=== PATIENT | male | born 1960 | race Caucasian/White ===

== ENCOUNTER 2017-06-15 13:14 | Emergency (ER) | payer OTHER ==
[~2017-06-15] VITALS: Ht 172.7 cm; Wt 121.8 kg
[2017-06-15] MEDS ORDERED: TYLE325T5 PO (13:55)
[2017-06-15] MEDS ORDERED: ASPI81TA85 PO (14:01)
[2017-06-15] MEDS ORDERED: OMEP40CA2 PO (14:01)
[2017-06-15] MEDS ORDERED: MULTCAP11 PO (14:01)
[2017-06-15] MEDS ORDERED: CLIN150C14 PO (14:01)
[2017-06-15] MEDS ORDERED: METH2.5TA PO (14:01)
[2017-06-15] MEDS ORDERED: ALBU17IN2 INH (14:01)
[2017-06-15] MEDS ORDERED: VITA500C24 PO (14:01)
[2017-06-15] MEDS ORDERED: FOLI1TAB4 PO (14:01)
[2017-06-15] MEDS ORDERED: ATEN25TA PO (14:01)
[2017-06-15] MEDS ORDERED: ASCO25TA PO (14:01)
[2017-06-15] MEDS ORDERED: ELIQ5TAB PO (14:01)
[2017-06-15] MEDS ORDERED: HYDR-3713 PO (14:01)
[2017-06-15] MEDS ORDERED: SIMV80TA PO (14:01)
[2017-06-15] MEDS ORDERED: COLA100C5 PO (14:01)
[2017-06-15] MEDS ORDERED: MORPHINE 4 MG/ML 1ML SYRINGE IV ONE (15:45)
[2017-06-15] MEDS ORDERED: CLINDAMYCIN 900 MG in APPROPRIATE DILUENT 1 EA IV ONE (16:00)
[2017-06-15 16:25] LABS: BASO % 0.4 % (0.0-1.0); EOS # 0.1 K/mm3 (0.0-0.50); EOS % 1.1 % (0.0-3.0); LARGE UNSTAINED CELL # 0.3 K/mm3 (0.0-0.4); LARGE UNSTAINED CELL % 2.2 % (0.0-4.0); LYMPH # 2.1 K/mm3 (1.5-4.5); LYMPH % 15.5 % (24.0-44.0); MEAN CORPUSCULAR VOLUME 97.1 fl (80.0-96.0); MONO # 0.8 K/mm3 (0.0-0.8); MONO % 6.7 % (0.0-5.0); NEUTROPHILS # 8.9 K/mm3 (1.8-7.7); NEUTROPHILS % 74.1 % (36.0-66.0); PLATELET COUNT, AUTOMATED 225 k/mm3 (150-450); RED CELL DISTRIBUTION WIDTH 13.9 % (11.5-14.5)
[2017-06-15 16:42] LABS: ANION GAP 9 MEQ/L (8-16); BLOOD UREA NITROGEN 14 MG/DL (7-18); CALCIUM LEVEL 8.2 MG/DL (8.5-10.1); CARBON DIOXIDE LEVEL 25 MEQ/L (21-32); CHLORIDE LEVEL 103 MEQ/L (98-107); CREATININE FOR GFR 0.85 MG/DL (0.70-1.30); GLOMERULAR FILTRATION RATE > 60.0 (>56); GLUCOSE, FASTING 107 MG/DL (70-105); POTASSIUM SERUM 4.6 MEQ/L (3.5-5.1); SODIUM LEVEL 137 MEQ/L (136-145)
[2017-06-15 16:49] LABS: ERYTHROCYTE SEDIMENTATION RATE 25 mm/hr (0-20)
[2017-06-15 16:52] VITALS: BP 162/93
[2017-06-15] MEDS ORDERED: PERCOCET 5MG/325MG TAB PO ONE (17:30)
[2017-06-15] MEDS ORDERED: PERC5TAB12 PO (17:34)
[2017-06-16] MEDS ORDERED: CLIN150C14 PO (16:38)
[2017-06-16] MEDS ORDERED: VITMTA PO (18:02)
[2017-06-16] MEDS ORDERED: OMEP20CA3 PO (18:02)
[2017-06-16] MEDS ORDERED: CLEO300C2 PO (18:02)
[2017-06-16] MEDS ORDERED: OXYC1TAB23 PO (18:02)
[2017-06-16] MEDS ORDERED: ASPI325T PO (18:22)
== END 2017-06-15 17:45 | disposition home or self-care (01) ==
LOC: M ED 13:14
DX: K04.7 Periapical abscess without sinus (principal); R68.84 Jaw pain; I25.2 Old myocardial infarction; Z95.1 Presence of aortocoronary bypass graft; I10 Essential (primary) hypertension; Z86.73 Personal history of transient ischemic attack (TIA), and cerebral infarction without residual deficits; E66.01 Morbid (severe) obesity due to excess calories; Z87.891 Personal history of nicotine dependence; Z79.01 Long term (current) use of anticoagulants; Z79.82 Long term (current) use of aspirin; Z79.899 Other long term (current) drug therapy; Z88.5 Allergy status to narcotic agent; Z88.0 Allergy status to penicillin

== ENCOUNTER 2017-06-16 16:25 | Inpatient (IN) | payer OTHER ==
[~2017-06-16] VITALS: Ht 172.7 cm; Wt 123.1 kg
[~2017-06-16 16:25] MED LIST: ALBU17IN2 INH; ASCO25TA PO; ASPI81TA85 PO; ATEN25TA PO; CLIN150C14 PO; COLA100C5 PO; ELIQ5TAB PO; FOLI1TAB4 PO; HYDR-3713 PO; METH2.5TA PO; MULTCAP11 PO; OMEP40CA2 PO; PERC5TAB12 PO; SIMV80TA PO; TYLE325T5 PO; VITA500C24 PO
[2017-06-16] MEDS ORDERED: CLIN150C14 PO (16:38)
[2017-06-16] MEDS ORDERED: MORPHINE 10 MG/ML 1ML VIAL IV ONE ×2 (17:15→21:15)
[2017-06-16] MEDS ORDERED: CLINDAMYCIN 900 MG in APPROPRIATE DILUENT 1 EA IV ONE (17:15)
[2017-06-16] MEDS ORDERED: CLEO300C2 PO (18:02)
[2017-06-16] MEDS ORDERED: OMEP20CA3 PO (18:02)
[2017-06-16] MEDS ORDERED: VITMTA PO (18:02)
[2017-06-16] MEDS ORDERED: OXYC1TAB23 PO (18:02)
[2017-06-16 18:06] LABS: BASO % 0.3 % (0.0-1.0); EOS # 0.1 K/mm3 (0.0-0.50); EOS % 1.2 % (0.0-3.0); LARGE UNSTAINED CELL # 0.3 K/mm3 (0.0-0.4); LARGE UNSTAINED CELL % 2.6 % (0.0-4.0); LYMPH # 2.2 K/mm3 (1.5-4.5); LYMPH % 17.1 % (24.0-44.0); MEAN CORPUSCULAR HEMOGLOBIN 33.3 pg (27.0-33.0); MEAN CORPUSCULAR HGB CONC 34.7 g/dl (32.0-36.5); MEAN CORPUSCULAR VOLUME 95.9 fl (80.0-96.0); MONO # 0.8 K/mm3 (0.0-0.8); MONO % 7.2 % (0.0-5.0); NEUTROPHILS # 8.1 K/mm3 (1.8-7.7); NEUTROPHILS % 71.6 % (36.0-66.0); PLATELET COUNT, AUTOMATED 211 k/mm3 (150-450); RED CELL DISTRIBUTION WIDTH 13.9 % (11.5-14.5); WHITE BLOOD COUNT 11.3 K/mm3 (4.0-10.0)
[2017-06-16] MEDS ORDERED: ASPI325T PO (18:22)
[2017-06-16 19:07] LABS: ANION GAP 7 MEQ/L (8-16); BLOOD UREA NITROGEN 16 MG/DL (7-18); CALCIUM LEVEL 9.3 MG/DL (8.5-10.1); CARBON DIOXIDE LEVEL 28 MEQ/L (21-32); CHLORIDE LEVEL 101 MEQ/L (98-107); CREATININE FOR GFR 0.97 MG/DL (0.70-1.30); GLOMERULAR FILTRATION RATE > 60.0 (>56); GLUCOSE, FASTING 114 MG/DL (70-105); POTASSIUM SERUM 4.3 MEQ/L (3.5-5.1); SODIUM LEVEL 136 MEQ/L (136-145)
[2017-06-16] MEDS: NS 1,000 ML IV SCH (21:00)
[2017-06-16] MEDS ORDERED: ACETAMINOPHEN 325 MG TAB PO PRN (21:00)
[2017-06-16] MEDS ORDERED: ALBUTEROL 90 MCG/ACT 8GM HFA INHALER INH PRN (21:00)
[2017-06-16] MEDS ORDERED: ONDANSETRON 4MG/2ML VIAL (J2405) IV PRN (21:15)
[2017-06-16 21:37] LABS: INR 1.04
[2017-06-16] MEDS: LACTOBACILLUS ACIDOPHILUS CAP (BACID) PO SCH (23:04)
[2017-06-16] MEDS: SIMVASTATIN 40 MG TAB PO SCH (23:04)
[2017-06-17] VITALS (9 sets, daily range): BP systolic 120–171; BP diastolic 69–102
[2017-06-17] MEDS: HEPARIN DRIP 25,000 UNITS in APPROPRIATE DILUENT 1 EA IV SCH (01:34)
[2017-06-17] MEDS: SENOKOT S TAB PO SCH ×2 (01:35→08:27)
[2017-06-17] MEDS: CLINDAMYCIN 900 MG in APPROPRIATE DILUENT 1 EA IV SCH ×3 (02:17→16:32)
--- NOTE | 2017-06-17 07:33 | HPE ---
DATE OF ADMISSION: 06/16/2017 PRIMARY CARE PROVIDER: Dr. Sabillon GRAINING OPERATOR: Dr. Espinoza CHIEF COMPLAINT: Left jaw pain swollen. HISTORY OF PRESENT ILLNESS: This is a 56-year-old male patient with underlying medical history of coronary arterial disease with coronary artery bypass graft (CABG) in 2013, transient ischemic attack (TIA) 2007 with right-sided upper and lower extremity weakness that has resolved since then and also pericardial effusion after coronary artery bypass graft (CABG) requiring pericardial window and questionable history of atrial fibrillation, which was later confirmed with Dr. Espinoza and also rheumatoid arthritis, hypertension, dyslipidemia, psoriasis and also obstructive sleep apnea on CPAP poorly compliant. The patient initially presented to the emergency room yesterday, June 15, and found to have a dental abscess. Subsequently was sent in by Dr. Noland today for OR drainage of abscess and tooth removal. The patient has not been on Eliquis. Eliquis has been on hold for the past 24 hours, but after discussing with Dr. Noland, given the patient's history of paroxysmal atrial fibrillation with history of cerebrovascular accident (CVA), the patient likely would benefit from bridging. Subsequently, the patient was placed on heparin drip, admitted for bridging for heparin drip and likely OR tomorrow. The patient at baseline is relatively healthy, able to ambulate a couple of blocks without any problems. 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 Denies any chest pain, pressure, discomfort, shortness of breath. Reported chills, subjective fever, none documented. Denies any nausea, vomiting diarrhea. ALLERGIES: CODEINE, HYDROCODONE, PENICILLIN. PAST MEDICAL HISTORY: 1. Coronary arterial disease. 2. Rheumatoid arthritis. 3. Psoriasis. 4. Dyslipidemia. 5. Hypertension. 6. Obstructive sleep apnea. 7. Cerebrovascular accident (CVA). 8. Paroxysmal atrial fibrillation. PAST SURGICAL HISTORY: Coronary artery bypass graft (CABG), pericardial , foot surgery and hand nodule surgery. SOCIAL HISTORY: The patient quit smoking in 2007. Smoked one pack per day for 30 years and drinking alcohol once a month. FAMILY HISTORY: Denies family history of premature coronary arterial disease or cerebrovascular disease. REVIEW OF SYSTEMS: Reported left jaw and facial pain. Denies any shortness of breath. All other review of systems is negative. HOME MEDICATION: - acetaminophen 500 mg by mouth every 6 hours as needed - Proventil inhalation every 6 hours as needed - Eliquis 5 mg by mouth twice a day - vitamin C 500 mg by mouth daily - aspirin 81 ana by mouth daily - aspirin 325 mg by mouth daily as needed - atenolol 25 mg by mouth daily - clindamycin 300 mg by mouth three times a day - Colace 500 mg by mouth daily - folic acid 1 mg by mouth daily - methotrexate 7.5 mg by mouth daily - multivitamins one tablet by mouth daily - omeprazole 20 mg by mouth daily - oxycodone/acetaminophen 5/325 mg by mouth every 6 hours as needed - Zocor 80 mg by mouth every p.m. PHYSICAL EXAMINATION: VITAL SIGNS: Temperature 99.2, pulse 108, respirations 18, blood pressure 117/78, pulse oximetry 95% on room air. GENERAL: The patient alert and oriented times three in no acute distress. HEENT: Right facial swelling and erythema. Tender to palpation. No tracheal deviation. PULMONARY: Bilateral clear to auscultation. CARDIAC: Regular rate and rhythm. Normal S1 and S2. ABDOMEN: Soft, nontender, obese, positive bowel sounds. EXTREMITIES: No edema in bilateral lower extremities. Electrocardiogram (EKG) shows sinus rhythm with no ST segment changes. LABORATORY: White blood count (WBC) 11.3, hemoglobin and hematocrit 16.4/47.2. Platelets 211. Chemistry: Sodium 136, potassium 4.2, chloride 101, bicarbonate 28, BUN 16, creatine 0.97, C-reactive protein 7.05. ASSESSMENT AND PLAN: This is a 56-year-old male patient with underlying medical history of coronary arterial disease, cerebrovascular accident (CVA) with coronary artery bypass graft (CABG) in 2013, cerebrovascular accident (CVA) in 2007 with pericardial effusion, psoriasis, rheumatoid arthritis, dyslipidemia, hypertension, obstructive sleep apnea and paroxysmal atrial fibrillation admitted for left-sided dental abscess. PROBLEMS: 1. Left-sided dental abscess. The patient will be urgent surgery tomorrow. The case was discussed with Dr. Noland, who is consulted. Will bridge the patient on heparin drip, with heparin drip to be held 3 to 4 hours prior to surgery and resume heparin drip after surgery and resume Eliquis the next day after surgery. Culture has been sent. The patient on clindamycin as per Dr. Noland. The case discussed with Dr. Espinoza. Will monitor the patient closely. The patient's baseline METs greater than 4. Is intermediate risk for low intermediate risk procedure. The patient is currently optimized. 2. Coronary artery disease. Continue aspirin, beta blockers, statin. Electrocardiogram (EKG) is appreciated. 3. History of cerebrovascular accident (CVA). Continue aspirin and beta blockers. Given underlying history of paroxysmal atrial fibrillation, will bridge the patient with heparin drip. Restart Eliquis the day after OR. 4. Constipation. Continue bowel regimen. 5. Atrial fibrillation. Continue beta blockers, heparin drip, bridge with heparin drip. Resume Eliquis 24 hours after OR. 6. Hypertension. Continue currently medication, monitor blood pressure. 7. Rheumatoid arthritis. Continue current medication. 8. Psoriasis. Continue current medication outpatient followup. 9. Dyslipidemia. Continue statin. 10. Obesity complicating care. 11. Obstructive sleep apnea. Obstructive sleep apnea protocol. Encourage CPAP compliance. CPAP as tolerated. 12. Deep vein thrombosis (DVT) prophylaxis. The patient is on heparin drip. DISPOSITION: Pending OR tomorrow. Will monitor the patient closely.
[2017-06-17 07:47] LABS: MEAN CORPUSCULAR HEMOGLOBIN 33.5 pg (27.0-33.0); MEAN CORPUSCULAR HGB CONC 34.8 g/dl (32.0-36.5); MEAN CORPUSCULAR VOLUME 96.2 fl (80.0-96.0); RED CELL DISTRIBUTION WIDTH 13.9 % (11.5-14.5); WHITE BLOOD COUNT 10.2 K/mm3 (4.0-10.0)
[2017-06-17 08:16] LABS: ANION GAP 8 MEQ/L (8-16); BLOOD UREA NITROGEN 18 MG/DL (7-18); CALCIUM LEVEL 9.3 MG/DL (8.5-10.1); CARBON DIOXIDE LEVEL 26 MEQ/L (21-32); CHLORIDE LEVEL 102 MEQ/L (98-107); CREATININE FOR GFR 0.89 MG/DL (0.70-1.30); GLOMERULAR FILTRATION RATE > 60.0 (>56); GLUCOSE, FASTING 119 MG/DL (70-105); MAGNESIUM LEVEL 2.1 MG/DL (1.8-2.4); POTASSIUM SERUM 4.2 MEQ/L (3.5-5.1); SODIUM LEVEL 136 MEQ/L (136-145)
[2017-06-17] MEDS: ASPIRIN 81 MG ENTERIC TAB PO SCH (08:26)
[2017-06-17] MEDS: OMEPRAZOLE 20 MG CAP PO SCH (08:26)
[2017-06-17] MEDS: FOLIC ACID 1 MG TAB PO SCH (08:26)
[2017-06-17] MEDS: LACTOBACILLUS ACIDOPHILUS CAP (BACID) PO SCH ×2 (08:26→16:00)
[2017-06-17] MEDS: ATENOLOL 25 MG TAB PO SCH (08:28)
[2017-06-17] MEDS: MULTIVITAMINS/MINERALS THERAP 1 TAB PO SCH (08:28)
[2017-06-17] MEDS: ASCORBIC ACID 500 MG TAB PO SCH (08:28)
[2017-06-17] MEDS: HEPARIN SOD (PORCINE) 5000 UNITS/ML VIAL IV PRN (08:29)
[2017-06-17] MEDS ORDERED: MIRALAX *UNIT DOSE* 17GM PACKET PO SCH (09:00)
[2017-06-17] MEDS: NS 1,000 ML IV SCH (12:16)
[2017-06-17] MEDS: MORPHINE 2 MG/ML 1ML SYRINGE IV PRN ×2 (12:17→17:25)
--- NOTE | 2017-06-17 16:14 | IPNPDOC ---
Date Seen The patient was seen on 06/17/17. Progress Note Hospitalist Progress Note Subjective: Patient states that he thinks the swelling has begun to go down Objective: Physical Exam: Vitals: Vital Sign - Last 24 Hours 06/16/17 06/16/17 06/16/17 06/16/17 16:25 17:34 17:52 18:58 Temp 98.6 99.2 Pulse 104 108 Resp 16 18 18 B/P (MAP) 138/88 (105) 117/78 (91) Pulse Ox 96 95 O2 Delivery Room Air Room Air 06/16/17 06/16/17 06/16/17 06/16/17 19:11 21:23 22:01 22:04 Pulse 93 Resp 18 18 18 18 B/P (MAP) 131/82 (98) Pulse Ox 99 99 99 06/16/17 06/16/17 06/16/17 06/16/17 23:25 23:40 23:49 23:55 Pulse 94 102 110 B/P (MAP) 115/59 (77) Pulse Ox 90 91 91 06/17/17 06/17/17 06/17/17 06/17/17 00:10 00:19 00:25 00:49 Pulse 108 112 B/P (MAP) 94/53 (67) 120/70 (87) Pulse Ox 90 89 06/17/17 06/17/17 06/17/17 06/17/17 00:53 02:46 04:47 08:00 Temp 98.4 98.0 98.2 Pulse 104 89 84 Resp 18 20 16 B/P (MAP) 130/72 (91) 136/83 (100) Pulse Ox 94 95 92 O2 Delivery Room Air Nasal Cannula Room Air Room Air O2 Flow Rate 2.0 06/17/17 06/17/17 06/17/17 06/17/17 08:28 08:40 12:00 12:17 Temp 98.5 Pulse 84 80 Resp 16 20 B/P (MAP) 136/83 150/94 (112) Pulse Ox 95 O2 Delivery Nasal Cannula Room Air Room Air O2 Flow Rate 2.0 06/17/17 06/17/17 06/17/17 12:27 12:35 16:00 Temp 98.8 Pulse 77 Resp 20 16 B/P (MAP) 138/80 (99) Pulse Ox 94 O2 Delivery Room Air Room Air Room Air General: Awake, alert, no acute distress HEENT: Left cheek and jaw are swollen, moist mucous membranes CV: Regular rate and rhythm Lungs: Clear to Auscultation bilaterally Abd: Soft, Nontender, nondistended Extremities: No edema Neuro: Alert and oriented 3, normal speech Psych: Normal mood and affect Labs and Imaging: Laboratory Tests 06/16/17 17:45 Red Blood Count 4.92, Mean Corpuscular Volume 95.9, Mean Corpuscular Hemoglobin 33.3 H, Mean Corpuscular Hemoglobin Concent 34.7, Red Cell Distribution Width 13.9, Neutrophils (%) (Auto) 71.6 H, Lymphocytes (%) (Auto) 17.1 L, Monocytes (% ) (Auto) 7.2 H, Eosinophils (%) (Auto) 1.2, Basophils (%) (Auto) 0.3, Neutrophils # (Auto) 8.1 H, Lymphocytes # (Auto) 2.2, Monocytes # (Auto) 0.8, Eosinophils # (Auto) 0.1, Basophils # (Auto) 0.0 06/16/17 18:42 Calcium Level 9.3 06/17/17 07:28 Red Blood Count 4.47, Mean Corpuscular Volume 96.2 H, Mean Corpuscular Hemoglobin 33.5 H, Mean Corpuscular Hemoglobin Concent 34.8, Red Cell Distribution Width 13.9, Calcium Level 9.3 Assessment and Plan: 56-year-old male with CAD status post CABG, TIA, pericardial effusion status post pericardial window, A. fib, rheumatoid arthritis, hypertension, hyperlipidemia, psoriasis, RAND who was sent to the emergency department to be bridged on a heparin drip from his home eliquis so that he could have oral surgical intervention of a tooth abscess. 1. Tooth abscess: Management as per Dr. Noland. Blood culture pending. Antibiotics as per oral surgery. Afebrile. White count was 11.3 on admission, now 10.2. Continue IV fluids 2. A. fib, with history of TIA: The patient usually takes eliquis at home. Given his history of A. fib and TIA, it was felt that it is safest for him to be bridged on a heparin drip for this surgery. After surgery today, the heparin drip will be resumed, and the patient should be able to transition to [facility] tomorrow, 24 hours after surgery. Continue beta megha. 3. CAD status post CABG, hyperlipidemia: No current chest pain. Continue home aspirin, statin, beta megha. 4. Rheumatoid arthritis: Continue home methotrexate. 5. Hypertension: Continue beta megha. DVT prophylaxis: Heparin drip Dispo: pending tooth extraction VS, I&O, 24H, Fishbone Vital Signs/I&O Vital Signs Date Time Temp Pulse Resp B/P (MAP) Pulse Ox O2 Delivery O2 Flow Rate FiO2 06/17/17 16:00 98.8 77 16 138/80 (99) 94 Room Air 06/17/17 08:40 2.0 I&O- Last 24 Hours up to 6 AM 06/17/17 06:00 Intake Total 1054 ml Output Total 325 ml Balance 729 ml Laboratory Data 24H LABS Laboratory Tests 2 06/16/17 17:45: White Blood Count 11.3H, Red Blood Count 4.92, Hemoglobin 16.4, Hematocrit 47.2 , Mean Corpuscular Volume 95.9, Mean Corpuscular Hemoglobin 33.3H, Mean Corpuscular Hemoglobin Concent 34.7, Red Cell Distribution Width 13.9, Platelet Count 211, Neutrophils (%) (Auto) 71.6H, Lymphocytes (%) (Auto) 17.1L, Monocytes (%) (Auto) 7.2H, Eosinophils (%) (Auto) 1.2, Basophils (%) (Auto) 0.3 , Neutrophils # (Auto) 8.1H, Lymphocytes # (Auto) 2.2, Monocytes # (Auto) 0.8, Eosinophils # (Auto) 0.1, Basophils # (Auto) 0.0, Large Unclassified Cells % 2.6 , Large Unclassified Cells # 0.3 06/16/17 18:42: Anion Gap 7L, Glomerular Filtration Rate > 60.0, Blood Urea Nitrogen 16, Creatinine 0.97, Sodium Level 136, Potassium Level 4.3, Chloride Level 101, Carbon Dioxide Level 28, Calcium Level 9.3, C-Reactive Protein, Quantitative 7.05H 06/16/17 21:21: Prothrombin Time 13.7, Prothromb Time International Ratio 1.04, Activated Partial Thromboplast Time 28.8 06/17/17 07:28: Anion Gap 8, Glomerular Filtration Rate > 60.0, Blood Urea Nitrogen 18, Creatinine 0.89, Sodium Level 136, Potassium Level 4.2, Chloride Level 102, Carbon Dioxide Level 26, Calcium Level 9.3, C-Reactive Protein, Quantitative 8.22H, Activated Partial Thromboplast Time 39.8H, Magnesium Level 2.1 06/17/17 14:37: Activated Partial Thromboplast Time 66.8H CBC/BMP Laboratory Tests 06/16/17 17:45 Red Blood Count 4.92, Mean Corpuscular Volume 95.9, Mean Corpuscular Hemoglobin 33.3 H, Mean Corpuscular Hemoglobin Concent 34.7, Red Cell Distribution Width 13.9, Neutrophils (%) (Auto) 71.6 H, Lymphocytes (%) (Auto) 17.1 L, Monocytes (% ) (Auto) 7.2 H, Eosinophils (%) (Auto) 1.2, Basophils (%) (Auto) 0.3, Neutrophils # (Auto) 8.1 H, Lymphocytes # (Auto) 2.2, Monocytes # (Auto) 0.8, Eosinophils # (Auto) 0.1, Basophils # (Auto) 0.0 06/16/17 18:42 Calcium Level 9.3 06/17/17 07:28 Red Blood Count 4.47, Mean Corpuscular Volume 96.2 H, Mean Corpuscular Hemoglobin 33.5 H, Mean Corpuscular Hemoglobin Concent 34.8, Red Cell Distribution Width 13.9, Calcium Level 9.3 Microbiology Microbiology 06/16/17 Blood Culture, Received Pending 06/16/17 Blood Culture, Received Pending PEEWEE BORREGO Jun 17, 2017 16:14
[2017-06-17] MEDS ORDERED: fentaNYL 100 MCG/2 ML INJECTION (J3010) As Ordered ONE ×2 (19:14→19:46)
[2017-06-17] MEDS ORDERED: MIDAZOLAM INJ 2 MG/2 ML VIAL (J2250) As Ordered ONE (19:14)
[2017-06-17] MEDS ORDERED: LIDOCAINE 2% W/ EPINEPHRINE 1.7 ML DENTAL INJ As Ordered ONE (19:24)
[2017-06-17] MEDS ORDERED: MEPIVACAINE HCL 3 % 1.7 ML DENTAL CARTRIDGE (CARBOCAINE) (J0670) As Ordered ONE (19:25)
[2017-06-17] MEDS ORDERED: LIDOCAINE 2% INJ 100 MG/5 ML SDV (FOR ANES.) As Ordered ONE (19:48)
[2017-06-17] MEDS ORDERED: PROPOFOL 200 MG/20 ML VIAL As Ordered ONE (19:48)
[2017-06-17] MEDS ORDERED: ePHEDrine SULFATE 25 MG/5 ML(5MG/ML) SYRINGE As Ordered ONE (19:48)
[2017-06-17] MEDS ORDERED: PHENYLephrine HCL 500 MCG/5 ML (100MCG/ML) SYRINGE (J2370) As Ordered ONE (19:48)
[2017-06-17] MEDS ORDERED: SUCCINYLCHOLINE 100 MG/5 ML SYRINGE (J0330) As Ordered ONE (19:48)
[2017-06-17] MEDS ORDERED: ONDANSETRON 4MG/2ML VIAL (J2405) IV PRN (21:00)
[2017-06-17] MEDS ORDERED: METHOTREXATE 2.5 MG TAB (J8610 PER 2.5MG) PO SCH (21:00)
[2017-06-17] MEDS ORDERED: PERCOCET 5MG/325MG TAB PO PRN (21:00)
[2017-06-17] MEDS ORDERED: LR 1,000 ML IV SCH (21:00)
[2017-06-17] MEDS ORDERED: MEPERIDINE INJ 25 MG/ML VIAL (J2175) IV PRN (21:00)
[2017-06-17] MEDS ORDERED: METOCLOPRAMIDE INJ 10MG/2ML VIAL (J2765) IV PRN (21:00)
[2017-06-17] MEDS ORDERED: fentaNYL 100 MCG/2 ML INJECTION (J3010) IV PRN (21:00)
[2017-06-17] MEDS ORDERED: MAGNESIUM CITRATE 300 ML BTL PO ONE (22:15)
[2017-06-18] VITALS (7 sets, daily range): BP systolic 126–149; BP diastolic 66–89
[2017-06-18] MEDS: SIMVASTATIN 40 MG TAB PO SCH ×2 (00:32→20:18)
[2017-06-18] MEDS: LACTOBACILLUS ACIDOPHILUS CAP (BACID) PO SCH ×4 (00:32→20:18)
[2017-06-18] MEDS: SENOKOT S TAB PO SCH ×3 (00:32→20:18)
[2017-06-18] MEDS: PERCOCET 5MG/325MG TAB PO PRN ×2 (00:32→20:19)
[2017-06-18] MEDS: CLINDAMYCIN 900 MG in APPROPRIATE DILUENT 1 EA IV SCH ×3 (00:33→16:10)
[2017-06-18] MEDS: HEPARIN DRIP 25,000 UNITS in APPROPRIATE DILUENT 1 EA IV SCH (02:37)
--- NOTE | 2017-06-18 07:55 | RO ---
DATE OF PROCEDURE: 06/17/2017 DATE OF ADMISSION: 06/16/2017 SERVICE: Oral maxillofacial surgery. PREOPERATIVE DIAGNOSES: 1. Hypertension, coronary artery disease morbid obesity, atrial fibrillation and a history of the venous thrombosis. 2. Left buccal space abscess/infection with necrotic and abscessed teeth #18 and #19. POSTOPERATIVE DIAGNOSES: Status post hypertension, coronary artery disease morbid obesity, atrial fibrillation and a history of the venous thrombosis, left buccal space abscess/infection with necrotic and abscessed teeth #18 and #19. PROCEDURE PERFORMED: Incision and drainage of left buccal space abscess as well as surgical extraction of teeth #18 and 19. SURGEON: Sonu Noland DMD, MD SENIOR DESIGNER/ART DIRECTOR: ANESTHESIA USED: General endotracheal anesthesia via oral YURIDIA. SPECIMEN: Aerobes and anaerobes cultures and sensitivity. ESTIMATED BLOOD LOSS: About 30 mL. INDICATIONS FOR SURGERY: Mr. Calles is a pleasant, 56-year-old male who this last Thursday was complaining of tooth pain as well as facial swelling. He did see his dentist that day who prescribed him some antibiotics in the form of clindamycin. The patient did relatively okay in the next 24 hours. However, on Thursday, he developed severe swelling in his cheek and with limited mouth opening. He presented back to the [place] emergency room on Thursday and was then referred to [facility] emergency room (ER) where I saw him there on Thursday. Clinical exam reveals moderate left facial swelling in the cheek area with a soft neck with no induration or swelling noted there. His mouth opening was about 30 mm. Intraorally, he does have an elevated left mandibular vestibule with purulence stemming from the sulcus of teeth #18 and #19. These two teeth are grossly decayed with tenderness to palpation. The floor of the mouth was soft, uvula is intact and there was no airway involvement. Imaging on a Panorex reveals caries on tooth #18 as well as a periapical radiolucency on root canal tooth #19. His white count on admission in the ER was 12.6 and his vital signs were stable. At this point, discussion was made with the patient regarding the treatment options, which included a trip to the operating room for an incision and drainage and extraction of teeth #18 and #9. The plan was to have this done on 06/16/2017. However, his admitting hospitalist team required to have a cardiac as well as a complete medical history review with preoperative clearance and therefore, the case was delayed until 06/17/2017. He was placed on a heparin drip for deep venous thrombosis (DVT) prophylaxis due to his DVT history and he did well with that. A complete history and physical was performed and is in the patient's chart. A informed consent was obtained and was explained to the patient and was signed. DESCRIPTION OF PROCEDURE: On 06/17/2017, the patient in preop holding area. Any last minute questions were addressed. At that point, the informed consent was once again reviewed and updated. The history and physical was updated. At that point, the patient was taken back the operating room. He was laid supine on the operating room table. Ulnar nerve protectors were placed. Noninvasive cardiac monitors were applied. At that point, the patient was then induced for general anesthesia and intubated with an oral YURIDIA. He was then prepped and draped in the usual sterile fashion. A time-out procedure was performed to identify the patient, the procedure or any other precautions. At this point, the patient did not require any preoperative antibiotics since he was on a scheduled maintenance dose of 900 every 8 hours. He did receive 8 mg of IV Decadron. At this point, a moist throat pack was inserted and the patient's oropharynx followed by the administration of two Carpules of 2% lidocaine as well as four Carpules of 3% Carbocaine with no epi into the patient's vestibule as local infiltration as well as the mandibular blocks, followed by the use of a #15 blade to make an incision along the sulcus of teeth #18 and #19 extending mesially to teeth #20 and #21 and extended distally as a hockey stick buccal extension along the ramus subperiosteal dissection all the way to the inferior border of the mandible and underneath the masseter muscle reveals an abundance of necrotic and purulent material as well as what looks like a hematoma, which was completely evacuated and suctioned. An abundant amount of copious irrigation was performed and suctioned. At this point, buccal bone was then removed as a trough from teeth #18 and #19. The teeth were then sectioned and removed in total. The sockets were well curetted and irrigated. The lingual cortices were intact. The inferior alveolar nerve was not noted. At this point, a rongeur and a bone file were then used to smooth the facial cortices down to a smooth finish. Copious irrigation into the sockets were performed and the flaps were then closed with #3-0 chromic sutures. To mention, as soon as I made the incision at the start of the case, cultures were taken from the subperiosteal area and the submasseteric area for aerobes, anaerobes cultures and sensitivity. At this point, once sutures were completed, the oral cavity was suctioned and irrigated again and the throat pack was removed. Gauze hemostasis was easily achieved and at that point, once the throat pack was removed, he was awakened from general anesthesia and was extubated and taken back to the postanesthesia care unit (PACU). COMPLICATIONS: None. ESTIMATED BLOOD LOSS: About 20 mL. DRAINS: There were no drains placed.
--- NOTE | 2017-06-18 09:03 | ECGEPIP ---
Stationary ECG Study [facility] - ED Test Date: 2017-06-16 Pat Name: BOBBI BRADLEY Department: Room: - Gender: M [employer] Mechanic: DEMI : 1960 Requested By: RENNY Quezada PA-C Order Number: [id number] Reading MD: Olivia Guzmán Measurements Intervals [place] Rate: 96 P: 72 ID: [id number] QRS: 44 QRSD: 86 T: 67 QT: 343 QTc: 434 Interpretive Statements SINUS RHYTHM WITH FIRST DEGREE AV BLOCK NSTTW ABNORMALITY NO PRIOR FOR COMPARISON Electronically Signed On 06-18-2017 9:02:38 EDT by Olivia Guzmán
[2017-06-18 09:25] LABS: MEAN CORPUSCULAR HEMOGLOBIN 33.7 pg (27.0-33.0); MEAN CORPUSCULAR HGB CONC 34.6 g/dl (32.0-36.5); MEAN CORPUSCULAR VOLUME 97.4 fl (80.0-96.0); RED CELL DISTRIBUTION WIDTH 13.2 % (11.5-14.5); WHITE BLOOD COUNT 8.8 K/mm3 (4.0-10.0)
[2017-06-18] MEDS: FOLIC ACID 1 MG TAB PO SCH (09:48)
[2017-06-18] MEDS: ASPIRIN 81 MG ENTERIC TAB PO SCH (09:48)
[2017-06-18] MEDS: OMEPRAZOLE 20 MG CAP PO SCH (09:49)
[2017-06-18] MEDS: ATENOLOL 25 MG TAB PO SCH (09:50)
[2017-06-18] MEDS: MULTIVITAMINS/MINERALS THERAP 1 TAB PO SCH (09:51)
[2017-06-18] MEDS: ASCORBIC ACID 500 MG TAB PO SCH (09:51)
[2017-06-18 10:29] LABS: ANION GAP 9 MEQ/L (8-16); BLOOD UREA NITROGEN 22 MG/DL (7-18); CARBON DIOXIDE LEVEL 27 MEQ/L (21-32); CHLORIDE LEVEL 102 MEQ/L (98-107); CREATININE FOR GFR 1.05 MG/DL (0.70-1.30); GLOMERULAR FILTRATION RATE > 60.0 (>56); GLUCOSE, FASTING 192 MG/DL (70-105); MAGNESIUM LEVEL 2.6 MG/DL (1.8-2.4); POTASSIUM SERUM 4.8 MEQ/L (3.5-5.1); SODIUM LEVEL 138 MEQ/L (136-145)
[2017-06-18] MEDS: HEPARIN SOD (PORCINE) 5000 UNITS/ML VIAL IV PRN (10:31)
--- NOTE | 2017-06-18 19:55 | IPNPDOC ---
Date Seen The patient was seen on 06/18/17. Progress Note Hospitalist Progress Note Subjective: Patient states he is feeling much better Objective: Physical Exam: Vitals: Vital Sign - Last 24 Hours 06/17/17 06/17/17 06/17/17 06/17/17 20:35 20:37 20:38 20:40 Temp 97.5 Pulse 94 96 Resp 14 B/P (MAP) 186/110 (135) 214/106 (142) 164/86 (112) Pulse Ox 95 90 O2 Delivery Room Air 06/17/17 06/17/17 06/17/17 06/17/17 20:45 20:50 20:51 20:55 Pulse 92 90 87 Resp 20 B/P (MAP) 154/79 (104) 152/94 (113) 143/76 (98) Pulse Ox 90 96 92 O2 Delivery Nasal Cannula O2 Flow Rate 2 06/17/17 06/17/17 06/17/17 06/17/17 21:00 21:01 21:05 21:15 Temp 97.3 97.0 Pulse 88 88 89 85 Resp 20 20 B/P (MAP) 136/80 (98) 134/81 (98) 153/88 (109) Pulse Ox 92 94 94 96 O2 Delivery Nasal Cannula Nasal Cannula O2 Flow Rate 2 2.0 06/17/17 06/17/17 06/17/17 06/17/17 21:29 21:45 22:45 23:45 Temp 97.5 97.1 96.2 Pulse 76 69 82 Resp 20 20 20 B/P (MAP) 132/69 (90) 145/84 (104) 138/102 (114) Pulse Ox 93 93 93 O2 Delivery Nasal Cannula Nasal Cannula Room Air Room Air O2 Flow Rate 2.0 2.0 06/18/17 06/18/17 06/18/17 06/18/17 00:32 00:41 01:02 01:45 Temp 96.2 96.6 96.6 96.3 Pulse 82 75 75 72 Resp 20 20 20 20 B/P (MAP) 138/102 140/89 (106) 140/89 131/84 (100) Pulse Ox 93 92 92 93 O2 Delivery Room Air Room Air Room Air Room Air O2 Flow Rate 2.0 2.0 06/18/17 06/18/17 06/18/17 06/18/17 04:00 08:00 08:10 09:50 Temp 96.6 97.4 Pulse 64 79 79 Resp 20 18 B/P (MAP) 126/66 (86) 142/81 (101) 142/81 Pulse Ox 94 98 O2 Delivery Room Air Room Air Room Air 06/18/17 06/18/17 06/18/17 12:00 16:37 17:00 Temp 97.0 97.1 Pulse 80 88 Resp 18 19 B/P (MAP) 138/78 (98) 128/66 (86) Pulse Ox 96 95 O2 Delivery Room Air Room Air Room Air General: Awake, alert, no acute distress HEENT: Left cheek and jaw swelling are much improved, moist mucous membranes CV: Regular rate and rhythm Lungs: Clear to Auscultation bilaterally Abd: Soft, Nontender, nondistended Extremities: No edema Neuro: Alert and oriented 3, normal speech Psych: Normal mood and affect Labs and Imaging: Laboratory Tests 06/18/17 08:54 Red Blood Count 4.25 L, Mean Corpuscular Volume 97.4 H, Mean Corpuscular Hemoglobin 33.7 H, Mean Corpuscular Hemoglobin Concent 34.6, Red Cell Distribution Width 13.2, Calcium Level 9.0 Assessment and Plan: 56-year-old male with CAD status post CABG, TIA, pericardial effusion status post pericardial window, A. fib, rheumatoid arthritis, hypertension, hyperlipidemia, psoriasis, RAND who was sent to the emergency department to be bridged on a heparin drip from his home eliquis so that he could have oral surgical intervention of a tooth/buccal abscess. 1. Tooth/buccal abscess: Management as per Dr. Noland. Blood culture and abscess culture pending. Antibiotics as per oral surgery. Afebrile. White count was 11.3 on admission, now WNL. 2. A. fib, with history of TIA: The patient usually takes eliquis at home. Given his history of A. fib and TIA, it was felt that it is safest for him to be bridged on a heparin drip for this surgery. Will transition back to eliquis tonight, 24 hours after surgery. Continue beta megha. 3. CAD status post CABG, hyperlipidemia: No current chest pain. Continue home aspirin, statin, beta megha. 4. Rheumatoid arthritis: Continue home methotrexate. 5. Hypertension: Continue beta megha. DVT prophylaxis: Heparin drip, transitioning back to eliquis tonight Dispo: potentially tomorrow, pending OMFS's recs; OK to move to med/surg as he has not had any RVR VS, I&O, 24H, Fishbone Vital Signs/I&O Vital Signs Date Time Temp Pulse Resp B/P (MAP) Pulse Ox O2 Delivery O2 Flow Rate FiO2 06/18/17 17:00 Room Air 06/18/17 16:37 97.1 88 19 128/66 (86) 95 06/18/17 01:02 2.0 I&O- Last 24 Hours up to 6 AM 06/18/17 06:00 Intake Total 2177.5 ml Output Total 1975 ml Balance 202.5 ml Laboratory Data 24H LABS Laboratory Tests 2 06/18/17 01:05: Activated Partial Thromboplast Time 27.3 06/18/17 08:54: Activated Partial Thromboplast Time 60.7H, Anion Gap 9, Glomerular Filtration Rate > 60.0, Blood Urea Nitrogen 22H, Creatinine 1.05, Sodium Level 138, Potassium Level 4.8, Chloride Level 102, Carbon Dioxide Level 27, Calcium Level 9.0, Magnesium Level 2.6H, C-Reactive Protein, Quantitative 7.79H CBC/BMP Laboratory Tests 06/18/17 08:54 Red Blood Count 4.25 L, Mean Corpuscular Volume 97.4 H, Mean Corpuscular Hemoglobin 33.7 H, Mean Corpuscular Hemoglobin Concent 34.6, Red Cell Distribution Width 13.2, Calcium Level 9.0 Microbiology Microbiology 06/16/17 Blood Culture - Preliminary, Resulted No growth after 24 hours . All specim... 06/16/17 Blood Culture - Preliminary, Resulted No growth after 24 hours . All specim... 06/17/17 Anaerobic Culture, Received Pending 06/17/17 Gram Stain - Final, Resulted 06/17/17 Abscess Culture, Resulted Pending PEEWEE BORREGO Jun 18, 2017 19:55
[2017-06-18] MEDS: APIXABAN 5 MG TAB (ELIQUIS) PO SCH (20:18)
[2017-06-19] MEDS: CLINDAMYCIN 900 MG in APPROPRIATE DILUENT 1 EA IV SCH ×2 (01:44→08:44)
[2017-06-19 06:00] VITALS: BP 154/85
[2017-06-19 08:27] LABS: MEAN CORPUSCULAR HEMOGLOBIN 33.5 pg (27.0-33.0); MEAN CORPUSCULAR HGB CONC 34.6 g/dl (32.0-36.5); MEAN CORPUSCULAR VOLUME 96.7 fl (80.0-96.0); RED CELL DISTRIBUTION WIDTH 13.7 % (11.5-14.5)
[2017-06-19] MEDS: APIXABAN 5 MG TAB (ELIQUIS) PO SCH (08:43)
[2017-06-19] MEDS: OMEPRAZOLE 20 MG CAP PO SCH (08:43)
[2017-06-19] MEDS: LACTOBACILLUS ACIDOPHILUS CAP (BACID) PO SCH (08:43)
[2017-06-19] MEDS: MULTIVITAMINS/MINERALS THERAP 1 TAB PO SCH (08:43)
[2017-06-19] MEDS: SENOKOT S TAB PO SCH (08:43)
[2017-06-19] MEDS: FOLIC ACID 1 MG TAB PO SCH (08:43)
[2017-06-19 08:44] VITALS: BP 154/85
[2017-06-19] MEDS: ATENOLOL 25 MG TAB PO SCH (08:44)
[2017-06-19] MEDS: ASPIRIN 81 MG ENTERIC TAB PO SCH (08:44)
[2017-06-19] MEDS: ASCORBIC ACID 500 MG TAB PO SCH (08:45)
[2017-06-19] MEDS: PERCOCET 5MG/325MG TAB PO PRN (08:54)
[2017-06-19 08:58] LABS: ANION GAP 9 MEQ/L (8-16); BLOOD UREA NITROGEN 22 MG/DL (7-18); CALCIUM LEVEL 8.8 MG/DL (8.5-10.1); CARBON DIOXIDE LEVEL 25 MEQ/L (21-32); CHLORIDE LEVEL 105 MEQ/L (98-107); CREATININE FOR GFR 0.89 MG/DL (0.70-1.30); GLOMERULAR FILTRATION RATE > 60.0 (>56); GLUCOSE, FASTING 98 MG/DL (70-105); MAGNESIUM LEVEL 2.2 MG/DL (1.8-2.4); POTASSIUM SERUM 4.4 MEQ/L (3.5-5.1); SODIUM LEVEL 139 MEQ/L (136-145)
[2017-06-19] MEDS ORDERED: PERI0.126 MT (10:08)
[2017-06-19] MEDS ORDERED: CLEO300C2 PO (10:08)
--- NOTE | 2017-06-21 08:35 | DSES ---
DATE OF ADMISSION: 06/16/2017 DATE OF DISCHARGE: 06/19/2017 PRIMARY CARE PROVIDER: Dr. Sabillon. OROMAXILLARY SURGEON: Dr. Noland DISCHARGE DIAGNOSES: Left buccal space abscess with necrotic and abscessed teeth status post incision and drainage. Atrial fibrillation on Eliquis. History or transient ischemic attack (TIA). Coronary artery disease status post coronary artery bypass graft (CABG). Hyperlipidemia. Rheumatoid arthritis. Hypertension. Morbid obesity. DISCHARGE MEDICATIONS: - clindamycin 300 mg three times a day for 7 days - chlorhexidine mouth wash 10 mL three times a day, swish and spit - Tylenol 500 mg every 6 hours as needed pain - albuterol two puffs inhalation every 6 hours as needed shortness of breath - Eliquis 5 mg by mouth twice a day - ascorbic acid 500 mg by mouth daily - aspirin 81 mg by mouth daily - atenolol 25 mg by mouth daily - Colace 100 mg by mouth daily - folic acid 1 mg by mouth daily - methotrexate 7.5 mg once a week - multivitamins one tablet by mouth daily - omeprazole 20 mg by mouth daily - oxycodone/acetaminophen one tablet every 6 hours as needed pain - simvastatin 80 mg at bedtime HOSPITAL COURSE: This is a 56-year-old male admitted for left buccal space abscess and necrosis of teeth found in 06/15/2017 and was seen by the oromaxillary surgeon, Dr. Noland in the office and sent to the hospital for admission for operative drainage of the abscess and tooth removal. Since the patient has been on Eliquis and we wanted to hold Eliquis for 24 hours with heparin bridging, the patient was admitted to the hospital. Eliquis was stopped and bridged with heparin drip for 24 hours to 36 hours. The patient underwent operative procedure on 06/17/2017. 24 hours after the procedure the patient's Eliquis was restarted on 06/18/2017. The did well after the surgery. He was initially on IV clindamycin and subsequently changed to by mouth clindamycin. On the day of discharge, the patient's symptoms are controlled. The patient's vitals are stable and he is functioning at baseline. The patient is going to be discharged home to followup with the surgeon in the office. PHYSICAL EXAMINATION: VITAL SIGNS: Temperature 96.8, pulse 64, respiratory rate 18, blood pressure 154/85, pulse ox 99% in room air. GENERAL: Patient awake, alert, oriented times three lying down in bed in no acute distress. HEENT: Normocephalic, atraumatic. Moist mucous membranes. Anicteric eyes. CHEST: Clear to auscultation. CARDIOVASCULAR: S1, S2 regular. No rub. No murmur or gallop. ABDOMEN: Obese, soft, nontender. Bowel sounds present. EXTREMITIES: No edema. LABORATORY DATA: WBC 10, hemoglobin 14.1, platelet 221. Sodium 139, potassium 4.4, chloride 105, bicarbonate 25, BUN 22, creatinine 0.8, glucose 98, calcium 8.8, CIP 4.2. Blood cultures negative after 22 hours. Abscess gram stain: No organism seen. Aerobic culture: Normal [place] present. DISPOSITION: The patient is discharged home in stable condition. DISCHARGE INSTRUCTIONS: Patient to followup with Dr. Noland in 1 week. Patient to followup with primary care provider as per outpatient schedule. Soft diet. Activity as tolerated.
== END 2017-06-19 12:24 | disposition home or self-care (01) | DRG 138 ==
LOC: M ED 16:25 → M ED INP 21:08 → M PCU 06-17 00:45 → M MSPAV 06-18 16:37
PROVIDERS: ADMIT Hospitalist; ATTEND Hospitalist
PROC: 0CTX0Z1 Resection of Lower Tooth, Multiple, Open Approach (ICD-10-PCS; 2017-06-17)
PROC: 0C94XZZ Drainage of Buccal Mucosa, External Approach (ICD-10-PCS; principal; 2017-06-17 16:00)
DX: K12.2 Cellulitis and abscess of mouth (principal); K04.7 Periapical abscess without sinus; I48.0 Paroxysmal atrial fibrillation; Z86.73 Personal history of transient ischemic attack (TIA), and cerebral infarction without residual deficits; I25.10 Atherosclerotic heart disease of native coronary artery without angina pectoris; Z95.5 Presence of coronary angioplasty implant and graft; E78.5 Hyperlipidemia, unspecified; M06.9 Rheumatoid arthritis, unspecified; I10 Essential (primary) hypertension; E66.01 Morbid (severe) obesity due to excess calories; Z79.01 Long term (current) use of anticoagulants; Z79.82 Long term (current) use of aspirin; G47.33 Obstructive sleep apnea (adult) (pediatric); Z99.89 Dependence on other enabling machines and devices; Z88.0 Allergy status to penicillin; Z88.5 Allergy status to narcotic agent; Z87.891 Personal history of nicotine dependence